=== PATIENT | female | born 1990 | race African-American/Black ===

== ENCOUNTER 2023-09-03 17:06 | Emergency (ER) | payer SELFPAY ==
[~2023-09-03] VITALS: Ht 167.6 cm; Wt 68.2 kg
[2023-09-03 17:40] VITALS: BP 159/109; PULSE 80; RESP 15; TEMP 98.4
== END 2023-09-03 20:30 | disposition left against medical advice (07) ==
LOC: EMS 17:08
DX: R51.9 Headache, unspecified (principal); R11.2 Nausea with vomiting, unspecified; Z53.21 Procedure and treatment not carried out due to patient leaving prior to being seen by health care provider
CPT/HCPCS: 99281; Z7502

== ENCOUNTER 2025-06-03 11:37 | Emergency (ER) | payer OTHER ==
[~2025-06-03] VITALS: Ht 175.3 cm; Wt 81.6 kg
[2025-06-03 12:43] VITALS: TEMP 99
[2025-06-03] MEDS: ACETAMINOPHEN 500 MG TABLET PO ONE (13:56)
[2025-06-03 14:19] LABS: PLATELET COUNT (AUTO) 209 K/uL (150-450); RED BLOOD CELL COUNT(AUTO) 3.43 MIL/uL (4.00-5.20); RED CELL DISTRIBUTION WIDTH 17.1 % (11.5-14.5); WHITE BLOOD COUNT (AUTO) 3.4 K/uL (4.5-11.0)
[2025-06-03 14:24] LABS: CALCIUM, TOTAL 8.7 mg/dL (8.8-10.5); CREATININE 0.65 mg/dL (0.60-1.30); GLOMERULAR FILTR. RATE CALC > 60 mL/min (>60); GLUCOSE,RANDOM 82 mg/dL (70-110); SODIUM SERUM 136 mmol/L (136-145); UREA NITROGEN, BLOOD 9 mg/dL (7-18)
[2025-06-03 14:59] VITALS: BP 151/92; PULSE 64; RESP 16; O2SAT 98
[2025-06-03] MEDS ORDERED: FERR210T PO (14:59)
[2025-06-03] MEDS ORDERED: AMLO-257 PO (14:59)
[2025-06-03 15:05] LABS: RBC MORPHOLOGY COMMENT ABNORMAL RBC MORPH
== END 2025-06-03 15:37 | disposition home or self-care (01) ==
LOC: EMS 11:37
DX: I10 Essential (primary) hypertension (principal); D50.9 Iron deficiency anemia, unspecified
CPT/HCPCS: 80048; 84703; 85025; 93005; 99284